=== PATIENT | male | born 1990 | race Two or more races ===

== ENCOUNTER 2016-11-29 10:47 | Emergency (ER) | payer OTHER ==
[~2016-11-29] VITALS: Ht 172.7 cm; Wt 63.5 kg
[~2016-11-29 10:47] MED LIST: LEVE500T6 PO
[2016-11-29 11:28] VITALS: BP 123/78
== END 2016-11-29 11:34 | disposition home or self-care (01) ==
LOC: ER 10:48
DX: R56.9 Unspecified convulsions (principal)
CPT/HCPCS: 99283; A4606; Z7610

== ENCOUNTER 2017-06-03 10:21 | Emergency (ER) | payer OTHER ==
[~2017-06-03] VITALS: Ht 170.2 cm; Wt 63.5 kg
[~2017-06-03 10:21] MED LIST changes: -LEVE500T6 PO; +LEVE500T9 PO
[2017-06-03] MEDS ORDERED: LEVETIRACETAM (500MG) 500 MG in IV NS 0.9% 100 ML IV ONE (10:30)
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
[2017-06-03] MEDS ORDERED: IV SET PRIMARY PUMP SET 1 EA INFUS.SET MC ONE (10:39)
[2017-06-03 11:21] VITALS: BP 117/68
== END 2017-06-03 11:30 | disposition home or self-care (01) ==
LOC: ER 10:23
DX: S00.511A Abrasion of lip, initial encounter (principal); G43.909 Migraine, unspecified, not intractable, without status migrainosus; Z91.14 Patient's other noncompliance with medication regimen; V19.3XXA Pedal cyclist (driver) (passenger) injured in unspecified nontraffic accident, initial encounter; Y93.89 Activity, other specified; Y92.89 Other specified places as the place of occurrence of the external cause; Y99.8 Other external cause status
CPT/HCPCS: 96365; 99285; A4606; J1953; J7030; Z7610